=== PATIENT | male | born 1990 | race Caucasian/White ===

== ENCOUNTER 2016-07-26 05:07 | Emergency (ER) | payer MEDICAID ==
[~2016-07-26] VITALS: Ht 180.3 cm; Wt 131.5 kg
[2016-07-26 05:12] VITALS: Ht 180.3 cm; Wt 131.5 kg
[2016-07-26 07:13] VITALS: BP 138/72; PULSE 70; RESP 18
--- NOTE | 2016-07-26 07:23 | RADRPT ---
PROCEDURE: Chest. CLINICAL INDICATION: Chest pain. TECHNIQUE: Single frontal view of the chest was obtained. COMPARISON: None. FINDINGS: The cardiac silhouette is within normal limits. The aortic arch is unremarkable. There is no focal consolidation, vascular congestion or pleural effusion. There is no pneumothorax. IMPRESSION: No evidence for active cardiopulmonary disease. .Sekou Glez MD, MD Date Time Electronically viewed and signed by .Sekou Glez MD, on 07/26/2016 07:23 .T/
--- NOTE | 2016-07-26 07:28 | ERD ---
ER Documentation Chief Complaint Date/Time DATE: 07/26/16 TIME: 07:25 Chief Complaint right sided ches pain x 12 hours (SHIRA RIVERA PA-C) Date/Time 07/26/2016 Chief Complaint Right-sided chest pain started last night (SONIA ALONZO NP) HPI 25-year-old male presents here in emergency department for complaints of right arm pain, right sided chest pain chest pressure started last night. Patient describes the pain as sharp pain, pressure type of pain, 6/10 scale, radiates from the right chest area to the right arm. Patient did not take any medications to help with symptoms. Patient denies any dyspnea on exertion or dyspnea on lying down. Patient denies any palpitations or regular heartbeat. Patient denies any dizziness. Patient denies any traumas in the chest. Patient denies any shortness of breath or wheezing. Patient denies any fever or chills. Patient denies any cough. (SONIA ALONZO NP) ROS All systems reviewed and are negative except as per history of present illness. (SHIRA RIVERA PA-C) 12point review of systems is done and all are negative except for the ones mentioned in the HPI. (SONIA ALONZO NP) Medications Home Meds Active Scripts Naproxen* (Naprosyn*) 500 Mg Tablet, 500 MG PO BID Y for PAIN AND/OR INFLAMMATION, #30 TAB Prov:SHIRA RIVERA PA-C 07/26/16 Allergies Allergies: Coded Allergies: No Known Drug Allergies (Verified Allergy, Unknown, 07/26/16) PMhx/Soc Medical and Surgical Hx: pt denies Medical Hx, pt denies Surgical Hx History of Surgery: No Anesthesia Reaction: No Hx Neurological Disorder: No Hx Respiratory Disorders: No Hx Cardiac Disorders: No Hx Psychiatric Problems: No Hx Miscellaneous Medical Probl: No Hx Alcohol Use: Yes (social) Hx Substance Use: No Hx Tobacco Use: No Smoking Status: Never smoker (SHIRA RIVERA PA-C) Medical and Surgical Hx: pt denies Medical Hx, pt denies Surgical Hx (SONIA ALONZO NP) FmHx Family History: No coronary disease, No diabetes, No other (SONIA ALONZO NP) Physical Exam Vitals Vital Signs Date Time Temp Pulse Resp B/P Pulse Ox O2 Delivery O2 Flow Rate FiO2 07/26/16 07:13 70 18 138/72 95 07/26/16 05:12 98.8 106 20 163/91 99 (SONIA ALONZO NP) Physical Exam Const: snoring, NAD Head: Atraumatic Eyes: Normal Conjunctiva ENT: Normal External Ears, Nose and Mouth. Neck: Full range of motion..~ No meningismus. Resp: Clear to auscultation bilaterally Cardio: Regular rate and rhythm, no murmurs Abd: Soft, non tender, non distended. Normal bowel sounds Skin: No petechiae or rashes Back: No midline or flank tenderness Ext: No cyanosis, or edema. Right Arm with full active range of motion. Pulses 2+. The MDI Neur: Awake and alert Psych: Normal Mood and Affect (SHIRA RIVERA PA-C) Results 24 hrs DIAGNOSTIC IMAGING REPORT Patient: CLARIBEL NAVARRO : 1990 Age: 25 Sex: M MR #: [id number] DOS: 07/26/16 0533 Ordering MD: SONIA ALONZO NP Location: [facility] Room/Bed: PROCEDURE: Chest. CLINICAL INDICATION: Chest pain. TECHNIQUE: Single frontal view of the chest was obtained. COMPARISON: None. FINDINGS: The cardiac silhouette is within normal limits. The aortic arch is unremarkable. There is no focal consolidation, vascular congestion or pleural effusion. There is no pneumothorax. IMPRESSION: No evidence for active cardiopulmonary disease. .Sekou Glez MD, MD Date Time Electronically viewed and signed by .Sekou Glez MD, MD on 07/26/2016 07:23 .T/ CC: SONIA ALONZO NP (SHIRA RIVERA PA-C) Procedures/MDM Patient was signed out to me from Sonia Otero NP pending result of a chest x- ray after patient was complaining of chest pain and right arm numbness and tingling.. Chest x-ray is negative. There is no focal consolidation, vascular congestion or pleural effusion. There is no pneumothorax. EKG was obtained earlier in the evening and read and interpreted by Dr. Riddle Rate: 95 beats a minute. No ST elevation. No QT prolongation. Normal sinus rhythm. Patient will be discharged home with Naprosyn for his chest pain that is possibly related to costochondritis, versus muscle strain versus tendinitis arthritis in his arm or neck. Patient is snoring in the bed and is in no acute distress. At this time the patient is stable for discharge and outpatient management. Patient should follow up with their PCP in the next 1-2 days. They may return to the emergency department sooner for any persistent or worsening of symptoms. Patient understood and agreed with the plan. (SHIRA RIVERA PA-C) Departure Diagnosis: Primary Impression: Chest pain Chest pain type: unspecified Qualified Code: R07.9 - Chest pain, unspecified type Condition: Fair SHIRA RIVERA PA-C Jul 26, 2016 07:28 SONIA ALONZO NP Jul 26, 2016 18:21
[2016-07-26] MEDS ORDERED: NAPR-260 PO (07:31)
== END 2016-07-26 07:45 | disposition home or self-care (01) ==
LOC: FTE 05:07
DX: R07.9 Chest pain, unspecified (principal)
CPT/HCPCS: 71010; 93005; Z7502